=== PATIENT | female | born 1945 | race Caucasian/White ===

== ENCOUNTER 2019-04-12 10:12 | Inpatient (IN) | payer MEDICARE ==
[2019-04-12 10:42] LABS: #Eosinphils 0.1 thou/uL (0.0-0.7); #Lymphocytes 2.6 thou/uL (1.20-3.40); #Monocytes 0.6 thou/uL (0.11-0.59); #Neutrophils 5.5 thou/uL (1.40-6.50); %Basophils 0.5 % (0.0-1.0); %Eosinophils 1.1 % (0.0-10.0); %Lymphocytes 29.6 % (21.0-51.0); %Monocytes 6.2 % (0.0-10.0); %Neutrophils 62.7 % (42.0-75.0); Hemoglobin 14.4 g/dL (12.0-16.0); Mean Corpuscular Hemoglobin 30.6 pg (27.0-31.0); Mean Corpuscular Volume 89.9 fL (78.0-98.0); Platelet Count 233 thou/uL (130-400); RBC Distribution Width 12.9 % (11.5-14.5); Red Blood Cell (RBC) Count 4.71 mill/uL (4.20-5.40); White Blood Cell (WBC) Count 8.8 thou/uL (4.8-10.8)
--- NOTE | 2019-04-12 10:44 | CT ---
Head CT without contrast 04/12/2019: COMPARISON: 04/09/2019 HISTORY: Altered mental status, right-sided weakness and slurred speech TECHNIQUE: Axial CT imaging at 5 mm intervals from vertex through skull base without contrast FINDINGS: There is a new vague area of hypodensity noted within the deep white matter in the posterio r left frontal lobe. This may involve the superior aspect of the left putamen. This measures up to 1.2 cm in transverse dimension. This suggests a new small area of infarction. There is no intracrania l hemorrhage, midline shift, or mass effect. The imaged paranasal sinuses and mastoid air cells appear well-aerated. No displaced calvarial fracture. IMPRESSION: New hypodensity on the left suggesting interval infarction. No intracranial hemorrhage. Results called to Dr. Noguera at 10:40 AM 04/12/2019
--- NOTE | 2019-04-12 10:57 | RAD ---
RADIOGRAPH CHEST 1 VIEW: DATE: 04/12/2019 HISTORY: 74-year-old female with dyspnea FINDINGS: There are no airspace densities, pulmonary edema, pneumothorax, or cardiomegaly. The lateral costophr enic angles are sharp. IMPRESSION: No acute cardiopulmonary findings.
[2019-04-12 11:01] LABS: ALT (SGPT) 21 U/L (8-55); AST (SGOT) 21 U/L (5-34); Albumin 4.5 g/dL (3.4-4.8); Alkaline Phosphatase 66 U/L (40-150); Anion Gap 14 mmol/L (10-20); BUN (Urea Nitrogen) 21 mg/dL (9.8-20.1); CK (CPK) 31 U/L (29-168); Calc. Creatinine Clearance 0 mL/min (70-130); Calcium 10.5 mg/dL (7.8-10.44); Carbon Dioxide 21 mmol/L (23-31); Chloride 107 mmol/L (98-107); Estimated GFR-MDRD 67; Globulin 3.2 g/dL (2.4-3.5); Glucose 112 mg/dL (83-110); Lipase 23 U/L (8-78); Potassium 4.3 mmol/L (3.5-5.1); Protein, Total 7.7 g/dL (6.0-8.3); Sodium 138 mmol/L (136-145)
[2019-04-12] MEDS ORDERED: Aspirin Chewable 81 MG TAB ONE (11:56)
[2019-04-12] MEDS ORDERED: Ondansetron PF 4 MG/2 ML Vial IVP PRN ×2 (13:33→15:21)
[2019-04-12] MEDS ORDERED: Ondansetron ODT 4 MG TAB SL PRN (13:33)
[2019-04-12] MEDS ORDERED: D5 1/2 NS w/20 mEq KCL 1,000 ML IV SCH (13:45)
[2019-04-12 14:50] VITALS: BMI 28.0
[2019-04-12] MEDS ORDERED: hydrALAZINE 20 MG/ML VIAL SLOW IVP PRN ×2 (15:19→16:06)
[2019-04-12] MEDS ORDERED: Ondansetron ODT 4 MG TAB PO PRN (15:21)
[2019-04-12] MEDS ORDERED: Senokot S 8.6-50 MG TAB PO PRN (15:21)
[2019-04-12] MEDS ORDERED: Calcium Carbonate 500 MG ChewTAB PO PRN (15:21)
[2019-04-12] MEDS ORDERED: Acetaminophen 325 MG TAB PO PRN (15:21)
[2019-04-12] MEDS ORDERED: Bisacodyl 10 MG SUPP PR PRN (15:21)
[2019-04-12] MEDS ORDERED: cloNIDine 0.1 MG TAB PO PRN (16:06)
--- NOTE | 2019-04-12 17:07 | ULT ---
BILATERAL CAROTID DUPLEX ULTRASOUND INCLUDING COLOR AND SPECTRAL DOPPLER IMAGING: HISTORY: CVA. FINDINGS: Extensive visualized plaque bilaterally. PSV RIGHT ICA: 72 cm per second. EDV: 21 cm per second. ICA/CCA RATIO: 0.9. PSV LEFT ICA: 120 cm per second. EDV: 26 cm per second. ICA/CCA RATIO: 1.4. IMPRESSION: 1. Less than 50% stenosis of the left internal carotid artery. 2. Bilateral atherosclerotic carotid artery vascular disease. POS: RRE
[2019-04-12] MEDS: D5 1/2 NS w/20 mEq KCL 1,000 ML IV SCH (17:34)
[2019-04-12] MEDS: Carvedilol 3.125 MG TAB PO SCH (17:34)
[2019-04-12] MEDS: Famotidine 20 MG TAB PO SCH (20:05)
[2019-04-12] MEDS: Apixaban 5 MG TAB PO SCH (20:05)
[2019-04-12] MEDS ORDERED: Atorvastatin Calcium 40 MG TAB PO SCH (21:00)
[2019-04-12] MEDS ORDERED: ALPRAZolam 0.25 MG TAB PO PRN (21:56)
[2019-04-12] MEDS ORDERED: Lorazepam 1 MG TAB PO PRN (21:56)
--- NOTE | 2019-04-12 22:17 | HP ---
PRIMARY CARE PHYSICIAN: Dr. Fleming. CHIEF COMPLAINT: Stroke-like symptoms. HISTORY OF PRESENT ILLNESS: The patient is a 74-year-old female with recent non ST-elevation ND status post stent placement on Plavix, presented to the emergency room with above complaints. The patient was discharged from this facility approximately five weeks ago after RCA and stent placement. She was discharged on aspirin and Plavix. She did well post discharge. Four days ago, the patient was admitted to [facility] with slurring of speech, facial droop along with right-sided weakness. CT scan of the brain was negative. CTA was negative per patient report. MRI could not be done due to recent coronary stent. She was discharged on Eliquis 5 mg b.i.d. along with Plavix 75 mg daily. Since yesterday evening, the patient started having weakness in the right upper extremity, mainly in the hands. It was sudden onset without any aggravating or relieving factor. 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 She is compliant with Eliquis and Plavix. She denies any headache, double vision, facial asymmetry, weakness, numbness of any of her extremities. No seizure reported. No chest pain, palpitations, or syncope reported. PAST MEDICAL HISTORY: 1. Recent non ST-elevation ND. 2. Coronary artery disease status post RCA stent, last month. 3. Hypertension. 4. Hyperlipidemia. 5. Hypothyroidism. 6. CKD stage 2. 7. Recent CVA at [facility]. Eliquis was started 3 days ago. PAST SURGICAL HISTORY: 1. Recent coronary stent placement. 2. Hysterectomy. ALLERGIES: THE PATIENT IS ALLERGIC LOVENOX. CURRENT HOME MEDICATION: 1. Eliquis 5 mg b.i.d. 2. Levothyroxine 100 mcg daily. 3. Lipitor 40 mg at bedtime. 4. Carvedilol 3.125 mg twice a day. 5. Plavix 75 mg daily. 6. Lisinopril 2.5 mg daily. SOCIAL HISTORY: The patient currently lives at home with her . Denies any alcohol, tobacco, or drug use. She is full code and makes her own decision with the help of her . FAMILY HISTORY: Negative for heart disease. REVIEW OF SYSTEMS: All other review of systems are reviewed and were found negative. PHYSICAL EXAMINATION: VITAL SIGNS: In the emergency room showed temperature 98, pulse of 63. Initial blood pressure was 206/73, repeat blood pressure was 156/49. O2 saturation of 99% on room air. GENERAL: A 74-year-old female, in no apparent distress. HEENT: Head, atraumatic and normocephalic. Sclerae anicteric. Moist mucous membranes. No oral lesion. NECK: Supple. No JVD appreciated. No carotid bruit. LUNGS: Clear to auscultation bilaterally. No wheezing, rales, or rhonchi. HEART: S1 and S2 present. Regular rate and rhythm. No rubs or gallops. ABDOMEN: Soft, nontender. Bowel sounds present. EXTREMITIES: No edema or calf tenderness. NEUROLOGIC: Cranial nerves 2 through 12 are normal on examination. Power was 5/5 in all extremities except for significant weakness in the right hand. She was unable to dorsiflex or extend her hand at the wrist joint. Sensation to touch was diminished in the hand. Otherwise, sensation to touch was normal bilaterally. Reflexes were equivocal. SKIN: Warm and dry. LYMPH NODES: No palpable lymph nodes in the neck. PERIPHERAL VASCULAR: Radial pulses palpable bilaterally. MUSCULOSKELETAL: No joint swelling tenderness. LABORATORY FINDINGS: WBC 8.8 with hemoglobin 14.4, platelet 233. Chemistry showed sodium 138, potassium 4.3, chloride 107, bicarb 21, BUN 21, creatinine 0.84, calcium 10.5. Troponin was negative. BNP was negative. IMAGING STUDIES: Chest x-ray by my review was negative for infiltrate. EKG by my review showed sinus rhythm with left bundle-branch block. Chest x-ray by my review was negative for infiltrate. CT scan of the brain showed acute infarction on the left, approximately 1.2 cm. IMPRESSION: 1. Acute left MCA distribution CVA causing right upper extremity weakness. 2. Coronary artery disease, status post recent non ST-elevation myocardial infarction with RCA stent placement. 3. Hypertension. 4. Hyperlipidemia. 5. Hypothyroidism. 6. Chronic kidney disease, stage 2. 7. Chronic anticoagulation started 3 days ago. PLAN: The patient will be monitored in the stroke unit. Stroke Team will be consulted. We will consult Neurology, Dr. Whipple as well as Cardiology, Dr. Lebron. We will continue Plavix along with Eliquis for now. MRI of the brain will be obtained. We will also get echocardiogram. Fasting lipid profile in a.m. We will resume carvedilol along with low-dose lisinopril and statins. Plan was discussed with the patient in detail and she stated understanding. The patient will require 2 to 3 days for stabilization. Job ID: [id number]
[2019-04-13 05:13] LABS: #Eosinphils 0.1 thou/uL (0.0-0.7); #Lymphocytes 2.3 thou/uL (1.20-3.40); #Monocytes 0.4 thou/uL (0.11-0.59); #Neutrophils 3.4 thou/uL (1.40-6.50); %Basophils 0.1 % (0.0-1.0); %Eosinophils 1.9 % (0.0-10.0); %Lymphocytes 36.6 % (21.0-51.0); %Monocytes 7.1 % (0.0-10.0); %Neutrophils 54.3 % (42.0-75.0); Hemoglobin 11.6 g/dL (12.0-16.0); Mean Corpuscular HGB CONC 33.5 g/dL (32.0-36.0); Mean Corpuscular Hemoglobin 30.5 pg (27.0-31.0); Mean Platelet Volume 8.6 fL (7.4-10.4); Platelet Count 176 thou/uL (130-400); RBC Distribution Width 12.8 % (11.5-14.5); White Blood Cell (WBC) Count 6.2 thou/uL (4.8-10.8)
[2019-04-13] MEDS: D5 1/2 NS w/20 mEq KCL 1,000 ML IV SCH (05:22)
[2019-04-13 05:36] LABS: Phosphorus 3.5 mg/dL (2.3-4.7)
[2019-04-13 05:43] LABS: ALT (SGPT) 18 U/L (8-55); AST (SGOT) 13 U/L (5-34); Albumin 3.5 g/dL (3.4-4.8); Alkaline Phosphatase 52 U/L (40-150); Anion Gap 11 mmol/L (10-20); BUN (Urea Nitrogen) 18 mg/dL (9.8-20.1); Bilirubin, Total 0.7 mg/dL (0.2-1.2); Calc. Creatinine Clearance 71 mL/min (70-130); Calcium 9.3 mg/dL (7.8-10.44); Carbon Dioxide 23 mmol/L (23-31); Cardiac Risk 4.8 (Less than 4.5); Chloride 108 mmol/L (98-107); Cholesterol 135 mg/dl (< 200 Desired); Estimated GFR-MDRD 70; Globulin 2.3 g/dL (2.4-3.5); Glucose 120 mg/dL (83-110); HDL Cholesterol 28 mg/dL (>60 Neg Risk); LDL Cholesterol, Calculated 83 mg/dL; Magnesium 1.9 mg/dL (1.6-2.6); Potassium 3.9 mmol/L (3.5-5.1); Protein, Total 5.8 g/dL (6.0-8.3); Sodium 138 mmol/L (136-145); Triglycerides 120 mg/dL (Less than 150)
[2019-04-13] MEDS ORDERED: Levothyroxine Sodium 100 MCG TAB PO SCH (06:00)
--- NOTE | 2019-04-13 08:51 | MRI ---
MRI BRAIN NONCONTRAST: DATE: 04/13/2019 HISTORY: A 74-year-old female with acute stroke: right upper extremity weakness and dysarthria. COMPARISON: No prior brain MRIs. FINDINGS: There is a confluent, approximately 3 x 1.5 cm patch of T2 and FLAIR hyperintensity that has restrict ed diffusion, located in the left alba radiata/periventricular white matter, involving the left bas al ganglia. The upper portion probably involves the left caudate body. There is no associated hemor rhage. The extraaxial spaces are diffusely enlarged, supratentorially, and especially in the posteri or fossa. The ventricles are normal in size and configuration. Chronic ischemic white matter change s are minimal. No mass effect, midline shift, or extraaxial fluid collection. Flow voids are grossl y maintained in the major arteries of the [place]. IMPRESSION: Acute/subacute infarction of the left corpus striatum. JN R POS: CET
[2019-04-13] MEDS ORDERED: Clopidogrel Bisulfate 75 MG TAB PO SCH (09:00)
[2019-04-13] MEDS ORDERED: Lisinopril 2.5 MG TAB PO SCH (09:00)
[2019-04-13] MEDS ORDERED: Aspirin 325 MG TAB PO SCH (09:00)
[2019-04-13] MEDS: Apixaban 5 MG TAB PO SCH (09:11)
[2019-04-13] MEDS: Carvedilol 3.125 MG TAB PO SCH ×2 (09:11→16:45)
[2019-04-13] MEDS: Famotidine 20 MG TAB PO SCH (09:11)
[2019-04-13] MEDS ORDERED: D5 1/2 NS w/20 mEq KCL 1,000 ML IV SCH (09:45)
[2019-04-13 10:17] LABS: Hemoglobin A1c 5.2 % (4.0-6.0)
[2019-04-13 11:51] VITALS: TEMP 97.9
--- NOTE | 2019-04-13 12:03 | PDOC.HOSPP ---
- Subjective Subjective: Patient seen and examined for Acute CVA. No new focal deficits. RUE strength improving. No new complaints. No overnight events - Objective Vital Signs & Weight: Vital Signs (12 hours) Temp Pulse Pulse Pulse Resp BP BP 04/13/19 11:50 97.9 F 61 20 04/13/19 10:24 61 152/60 H 04/13/19 09:10 62 04/13/19 08:40 66 67 157/56 H 174/57 H 04/13/19 07:45 97.6 F 62 20 04/13/19 04:00 97.6 F 66 18 04/13/19 00:00 97.9 F 60 16 BP Pulse Ox 04/13/19 11:50 152/60 H 99 04/13/19 10:24 04/13/19 09:10 04/13/19 08:40 04/13/19 07:45 167/68 H 97 04/13/19 04:00 149/57 H 95 04/13/19 00:00 172/56 H 98 Weight Weight 158 lb 5 oz I&O: 04/12/19 04/13/19 04/14/19 06:59 06:59 06:59 Intake Total 1655 240 Balance 1655 240 Result Diagrams: 04/13/19 04:34 04/13/19 04:34 Radiology Reviewed by me: Yes (MRI - Acute CVA) EKG Reviewed by me: Yes (Tele SR) ROS - Review of Systems All systems: All other ROS were reviewed and found negative. - Medication Medications: Active Medications Generic Name Dose Route Start Last Admin Trade Name Freq PRN Reason Stop Dose Admin Apixaban 5 mg 04/12/19 21:00 04/13/19 09:11 Eliquis PO 5 mg BID LUIS Administration Atorvastatin Calcium 40 mg 04/12/19 21:00 04/12/19 20:05 Lipitor PO 40 mg HS LUIS Administration Carvedilol 3.125 mg 04/12/19 17:00 04/13/19 09:11 Coreg PO 3.125 mg BID-WM LUIS Administration Clopidogrel Bisulfate 75 mg 04/13/19 09:00 04/13/19 09:10 Plavix PO 75 mg DAILY LUIS Administration Famotidine 20 mg 04/12/19 21:00 04/13/19 09:11 Pepcid PO 20 mg BID LUIS Administration Levothyroxine Sodium 100 mcg 04/13/19 06:00 04/13/19 05:22 Synthroid PO 100 mcg 0600 LUIS Administration Lisinopril 2.5 mg 04/13/19 09:00 04/13/19 09:10 Zestril PO 2.5 mg DAILY LUIS Administration - Exam NAD Heart: RRR, no gallops Respiratory: CTAB, no rales Gastrointestinal: soft, non-tender, normal bowel sounds Extremities: no cyanosis Neurological: no new deficit (Right hand fuel attendant improivng) Hosp A/P - Plan IMPRESSION: 1. Acute left MCA distribution CVA causing right upper extremity weakness. 2. CAD s/p recent NSTEMI with RCA stent placement. 3. Hypertension. 4. Hyperlipidemia. 5. Hypothyroidism. 6. Chronic kidney disease, stage 2. 7. Chronic anticoagulation with Eliquis 8. Dehydration on admission. PLAN: Cont Plavix/Eliquis/Statin Echo pending Carotid neg MRI reviewed Await Neuro/Cardio input Reduce IVF to 50 ml/hr
[2019-04-13 15:40] VITALS: BP 173/56
--- NOTE | 2019-04-13 18:20 | CON ---
DATE OF CONSULTATION: 04/12/2019 REASON FOR CONSULTATION: Recent CVA. HISTORY OF PRESENT ILLNESS: Ms. Benson is a very pleasant 74-year-old woman who was seen and evaluated in February. At that time, she presented with acute myocardial infarction. She underwent successful stent placement to the right coronary artery. This was a very difficult procedure with multiple stents placed in addition to a stent in the ostial right coronary artery. She recently presented to [facility] with stroke-like symptoms. It resolved. This was last . It then recurrent on Friday. Her symptoms continued to the weekend. She was then transferred to [place] for further disposition. Her main complaint is left-sided weakness. This is improved, but continues. She denies any chest pain, pressure, shortness of breath, or associated symptoms. PAST MEDICAL HISTORY: Chronic left bundle-branch block, hypertension, recent LA, hypothyroidism. MEDICATIONS: 1. Levothyroxine. 2. Aspirin. 3. Lisinopril. 4. Plavix. 5. Lipitor. 6. Nitroglycerin p.r.n. 7. Carvedilol. PAST SURGICAL HISTORY: Stent placed tn the right coronary artery, hysterectomy. FAMILY HISTORY: Negative. SOCIAL HISTORY: No current tobacco or alcohol use. ALLERGIES: NONE. REVIEW OF SYSTEMS: A 10-point review of systems is reviewed and as above, otherwise negative. PHYSICAL EXAMINATION: GENERAL: Patient is a pleasant female who is in no acute distress. The patient appears their stated age. VITAL SIGNS: Blood pressure 152/60, pulse 61, temperature afebrile. NEUROLOGIC: Weakness noted to the right upper extremity. HEENT: Sclerae without icterus. Mouth has moist mucous membranes with normal pallor. NECK: No JVD. Carotid upstroke brisk. No bruits bilaterally. LUNGS: Clear to auscultation with unlabored respirations. BACK: No scoliosis or kyphosis. CARDIAC: Regular rate and rhythm with normal S1 and S2. No S3 or S4 noted. No significant rubs, murmurs, thrills, or gallops noted throughout the precordium. PMI is not displaced. There is no parasternal heave. ABDOMEN: Soft, nontender, nondistended. No peritoneal signs present. No hepatosplenomegaly. No abnormal striae. EXTREMITIES: 2+ femoral and 2+ dorsalis pedis pulses. No cyanosis, clubbing, or edema. SKIN: No gross abnormalities. PERTINENT LABORATORY DATA: Hemoglobin 11.6 creatinine 0.81. IMPRESSION: 1. Cerebrovascular accident. 2. Recent myocardial infarction. 3. Chronic left bundle-branch block. 4. Status post stent placement. RECOMMENDATIONS: I discussed case with Dr. Fleming on Friday prior to her transfer from [place] . It was recommended she stop aspirin and start Eliquis given recurrence. There was concern for embolic phenomenon. An event recorder has been sent to her home. We would recommend checking her echo. Neurology has also been consulted. Job ID: [id number]
--- NOTE | 2019-04-13 18:49 | PRG ---
DATE OF SERVICE: 04/13/2019 SUBJECTIVE: Ms. Benson continues to have symptoms as described in her initial H and P. No new changes present. Her MRI did suggest a subacute infarct in the left corpus stratum. OBJECTIVE: GENERAL: Patient is a pleasant female, who is in no acute distress. The patient appears their stated age. VITAL SIGNS: Blood pressure temperature 97.9. NEUROLOGIC: The patient is alert and oriented x3 with no focal neurologic deficits. HEENT: Sclerae without icterus. Mouth has moist mucous membranes with normal pallor. NECK: No JVD. Carotid upstroke brisk. No bruits bilaterally. LUNGS: Clear to auscultation with unlabored respirations. BACK: No scoliosis or kyphosis. CARDIAC: Regular rate and rhythm with normal S1 and S2. No S3 or S4 noted. No significant rubs, murmurs, thrills, or gallops noted throughout the precordium. PMI is not displaced. There is no parasternal heave. ABDOMEN: Soft, nontender, nondistended. No peritoneal signs present. No hepatosplenomegaly. No abnormal striae. EXTREMITIES: 2+ femoral and 2+ dorsalis pedis pulses. No cyanosis, clubbing, or edema. SKIN: No gross abnormalities. PERTINENT LABORATORY DATA: Creatinine is 0.81. Hemoglobin 11.6. IMPRESSION: 1. Cerebrovascular accident. 2. Chronic left bundle-branch block. 3. Recent myocardial infarction. 4. Status post stent placement. RECOMMENDATIONS: Cannot completely exclude an embolic phenomena. We will continue to treat with Plavix and Eliquis. Her LVEF suggested EF of 40% to 45% and more likely related to her chronic left bundle-branch block and not related to her recent PA. She did have dyskinesis of the septum from her left bundle-branch block. From my standpoint, will be okay for discharge with close outpatient followup. We would recommend a 3-week event recorder to assess for any significant dysrhythmias, may have precipitated her embolic phenomena. Job ID: [id number]
--- NOTE | 2019-04-13 21:41 | DIS ---
DATE OF ADMISSION: 04/12/2019 DATE OF DISCHARGE: 04/13/2019 DISCHARGE DISPOSITION: Home. FOLLOWUP: Follow up with primary care physician, Dr. Dariusz Fleming in 1 week. Follow up with Dr. Lebron and Dr. Whipple in 2 weeks. Event recorder will be arranged by Dr. Lebron. ALLERGIES: THE PATIENT IS ALLERGIC TO LOVENOX. THE PATIENT WAS SEEN AND EXAMINED ON THE DAY OF DISCHARGE. PLEASE REFER TO MY PROGRESS NOTE FOR DETAILS. DISCHARGE MEDICATIONS: Same as admission medication. 1. Plavix 75 mg daily. 2. Lisinopril 2.5 mg daily. 3. Carvedilol 3.125 mg twice a day. 4. Lipitor 40 mg at bedtime. 5. Levothyroxine 100 mcg daily. 6. Eliquis 5 mg b.i.d. INPATIENT CONSULTANTS: 1. Cardiology, Dr. Lebron. 2. Neurology, Dr. Whipple. BRIEF HOSPITAL COURSE: The patient is a 74-year-old female with recent non-ST elevation [place], status post RCA stent, presented to the hospital with stroke-like symptoms. Please note that the patient was admitted 3 days ago at [facility]. Aspirin was discontinued and the patient was started on Eliquis. Plavix was continued. She developed new onset right upper extremity weakness for which she presented to this facility. She underwent stroke workup which was consistent with acute cerebrovascular accident involving the left corpus striatum. Echocardiogram showed ejection fraction 40% to 45% with dyskinetic motion of the septal wall as well as diastolic dysfunction. There was also mild mitral regurgitation, mild tricuspid regurgitation. Carotid Doppler was negative for hemodynamically significant stenosis. It showed less than 50% stenosis of the left internal carotid artery. The patient was evaluated by Cardiology and Electrophysiology. Event recorder will be arranged. She will continue Eliquis and Plavix. She has been cleared by Neurology and Cardiology for discharge. FINAL DIAGNOSES: 1. Acute cerebrovascular accident involving the left MCA distribution. 2. Recent non-ST elevation myocardial infarction. 3. Less than 50% stenosis of the left internal carotid artery. 4. Recent RCA stent placement. 5. Hypertension. 6. Hyperlipidemia. 7. Hypothyroidism. 8. Chronic kidney disease, stage 2. 9. Chronic anticoagulation with Eliquis. 10. Mild dehydration on admission. PLAN: Plan was discussed with the patient and the family in detail, they stated understanding. Job ID: [id number]
--- NOTE | 2019-04-13 23:51 | CON ---
DATE OF CONSULTATION: 04/13/2019 CONSULTING PHYSICIAN: Hospitalist Service. IMPRESSION: 1. Left frontoparietal ischemic stroke secondary to thrombosis with improving right-sided weakness and mild dysarthria. 2. The patient was already on maximum medical therapy. PLAN: 1. Continue current anticoagulation and Plavix. 2. Outpatient PT, OT, and speech therapy. HISTORY OF PRESENT ILLNESS: Ms. Benson is a 74-year-old female who came in with acute stroke symptoms. She felt some right-sided weakness and trouble speaking. She had had these symptoms for several days apparently. She had a CT scan of the brain done, which showed an area of hypointensity in the left anterior parietal region. Followup MRI showed the same thing. Carotid ultrasound did not show any stenosis. Echocardiogram showed an ejection fraction of 40% to 45%. Her lab work was all unremarkable. PAST MEDICAL HISTORY: Hyperlipidemia, hypertension, hypothyroidism, pulmonary embolus. ALLERGIES: LOVENOX. SOCIAL HISTORY: No tobacco use. FAMILY HISTORY: Noncontributory. REVIEW OF SYSTEMS: Ten-system review of systems is otherwise negative. PHYSICAL EXAMINATION: GENERAL: She is a healthy-appearing elderly lady, sitting in bed, in no distress. VITAL SIGNS: Have been stable. She is afebrile. HEENT: Pupils are equal and reactive. Conjunctivae are clear. Oropharynx is clear. Cranium, normocephalic and atraumatic. NECK: Supple. EXTREMITIES: No cyanosis or edema. NEUROLOGIC: She is alert and cooperative. Her speech was fluent with mild intermittent dysarthric quality. Her cranial nerve exam showed some slight flattening of the right nasolabial fold. She had antigravity strength in the right arm with diminished rapid alternating movements and mild diminished hand sales research analyst. Sensation was intact bilaterally. She has been able to walk independently with her walker since no abnormal movements were seen. SUMMARY: This is an elderly lady who presented with an ischemic stroke. She is currently on maximum medical therapy. She is improving. I think she is stable for discharge. I would be happy to follow up with her as an outpatient. Job ID: [id number]
== END 2019-04-13 18:34 | disposition home or self-care (01) | DRG 66 ==
LOC: ERS 10:12 → 2SE 11:00
PROVIDERS: ADMIT Internal Medicine; ATTEND Internal Medicine
DX: I63.312 Cerebral infarction due to thrombosis of left middle cerebral artery (principal); I25.10 Atherosclerotic heart disease of native coronary artery without angina pectoris; I12.9 Hypertensive chronic kidney disease with stage 1 through stage 4 chronic kidney disease, or unspecified chronic kidney disease; E78.5 Hyperlipidemia, unspecified; E03.9 Hypothyroidism, unspecified; N18.2 Chronic kidney disease, stage 2 (mild); E86.0 Dehydration; R47.1 Dysarthria and anarthria; R29.704 NIHSS score 4; I44.7 Left bundle-branch block, unspecified; I65.22 Occlusion and stenosis of left carotid artery; Z95.5 Presence of coronary angioplasty implant and graft; I25.2 Old myocardial infarction; Z79.01 Long term (current) use of anticoagulants; Z90.710 Acquired absence of both cervix and uterus; Z88.1 Allergy status to other antibiotic agents; Z79.899 Other long term (current) drug therapy
CPT/HCPCS: 36415; 70450; 70551; 71045; 80053; 80061; 82550; 83036; 83690; 83735; 83880; 84100; 84484; 85025; 93005; 93306; 93880

== ENCOUNTER 2025-09-04 17:03 | Observation (INO) | payer MEDICARE ==
[2025-09-04] MEDS ORDERED: Acetaminophen/Codeine 30-300mg Tablet PO PRN (17:39)
[2025-09-04] MEDS ORDERED: Ondansetron PF 4 MG/2 ML Vial IVP PRN (17:39)
[2025-09-04 18:37] VITALS: BMI 27.1
[2025-09-04] MEDS: Melatonin 3 MG TAB PO PRN (20:44)
[2025-09-04] MEDS: Carvedilol 25 MG TAB PO SCH (20:44)
[2025-09-04] MEDS: Acetaminophen 325 MG TAB PO PRN (20:44)
[2025-09-04] MEDS: Losartan 25 MG TAB PO SCH (20:45)
[2025-09-05 05:31] LABS: #Basophils Less than 0.03 10x3/uL (0.0-0.2); #Eosinophils 0.08 10x3/uL (0.0-0.7); #Monocytes 0.39 10x3/uL (0.11-0.59); #Neutrophils 2.06 10x3/uL (1.40-6.50); %Basophils 0.2 % (0.0-1.0); %Eosinophils 1.9 % (0.0-10.0); %Lymphocytes 39.8 % (21.0-51.0); %Monocytes 9.2 % (0.0-10.0); %Neutrophils 48.9 % (42.0-75.0); Hematocrit 28.6 % (36.0-47.0); Hemoglobin 9.0 g/dL (12.0-16.0); Mean Corpuscular Hemoglobin 26.0 pg (27.0-31.0); Mean Corpuscular Volume 82.7 fL (78.0-98.0); Platelet Count 173 10x3/uL (130-400); Red Blood Cell (RBC) Count 3.46 mill/uL (4.20-5.40); White Blood Cell (WBC) Count 4.22 10x3/uL (4.8-10.8)
[2025-09-05 06:08] LABS: Anion Gap 9 mmol/L (10-20); BUN (Urea Nitrogen) 19 mg/dL (9.8-20.1); Calc. Creatinine Clearance 58 mL/min (70-130); Calcium 9.0 mg/dL (7.8-10.44); Carbon Dioxide 22 mmol/L (23-31); Chloride 109 mmol/L (98-107); Glucose 94 mg/dL (83-110); Potassium 3.5 mmol/L (3.5-5.1); Sodium 136 mmol/L (136-145)
[2025-09-05] MEDS: Losartan 25 MG TAB PO SCH (09:44)
[2025-09-05] MEDS: Rosuvastatin 20 MG TAB PO SCH (09:45)
[2025-09-05 11:25] VITALS: BP 155/65; TEMP 98.5
== END 2025-09-05 17:30 | disposition home or self-care (01) ==
LOC: 2NO 17:03 → INTOOBSV 17:03
PROVIDERS: ADMIT Family Medicine; ATTEND Internal Medicine
DX: S32.19XA Other fracture of sacrum, initial encounter for closed fracture (principal); R55 Syncope and collapse; E86.0 Dehydration; I10 Essential (primary) hypertension; E03.9 Hypothyroidism, unspecified; K21.9 Gastro-esophageal reflux disease without esophagitis; Z86.73 Personal history of transient ischemic attack (TIA), and cerebral infarction without residual deficits; Z86.79 Personal history of other diseases of the circulatory system; Z88.8 Allergy status to other drugs, medicaments and biological substances; Z79.899 Other long term (current) drug therapy; Z90.710 Acquired absence of both cervix and uterus; W18.30XA Fall on same level, unspecified, initial encounter
CPT/HCPCS: 80048; 85025; 96360; 96361; G0378 ×2; J7120 ×2; 36415